=== PATIENT | female | born 1980 | race Caucasian/White ===

== ENCOUNTER 2023-10-18 22:15 | Emergency (ER) | payer SELFPAY ==
--- NOTE | 2023-10-18 23:24 | EDPHYS ---
Physician Documentation [facility] Name: Katie Buenrostro Age: 42 yrs Sex: Female : 1980 Arrival Date: 10/18/2023 Time: 22:15 Bed Waiting Private MD: ED Physician Hilton Etienne HPI: 10/17 22:52 This 42 yrs old Female presents to ER via Unassigned with complaints of sp4 Depression, Anxiety. 23:23 Eloped prior to assessment . sp4 MDM: 23:03 Patient medically screened. sp4 Administered Medications: No medications were administered Disposition: 23:24 Chart complete. sp4 Disposition Summary: 10/18/23 23:23 Eloped Notes: Disposition: before being seen by provider sp4 Problem: new sp4 Symptoms: are unchanged sp4 Reason: unknown sp4 Condition: Undetermined sp4 Diagnosis - Anxiety disorder, unspecified sp4 Followup: sp4 - With: Private Physician - When: As needed - Reason: Signatures: Hilton Etienne MD MD sp4
--- NOTE | 2023-10-18 23:58 | ER ---
Nurse's Notes [facility] Name: Katie Buenrostro Age: 42 yrs Sex: Female : 1980 Arrival Date: 10/18/2023 Time: 22:15 Bed Waiting Private MD: Diagnosis: Anxiety disorder, unspecified Assessment: 10/17 23:09 Reassessment: Called in WR, no answer. tl4 23:45 Reassessment: Called in waiting room, no answer. tl4 23:56 Reassessment: Called in WR, no answer. tl4 ED Course: 22:24 Patient arrived in ED. mr 22:52 Hilton Etienne MD is Attending Physician. sp4 Administered Medications: No medications were administered Outcome: 23:57 Patient left the ED. tl4 Signatures: Kate Arcos, Reg Reg mr Hilton Etienne MD MD sp4 Aaron Vang RN RN tl4
== END 2023-10-18 23:57 | disposition left against medical advice (07) ==
LOC: ER 22:15
DX: Z02.9 Encounter for administrative examinations, unspecified (principal)

== ENCOUNTER 2023-10-20 20:53 | Emergency (ER) | payer SELFPAY ==
[2023-10-20 21:22] LABS: Absolute Basophils 0.2 K/uL (0-0.5); Absolute Eosinophils 0.2 K/uL (0-0.5); Absolute Lymphocytes (CBC) 3.8 K/uL (0.7-4.9); Absolute Monocytes 0.5 K/uL (0.1-1.3); Absolute Neutrophil 3.3 K/uL (1.8-8.0); Basophils % 2.1 % (0-1.3); Eosinophils % 2.2 % (0-4.4); Hematocrit 36.6 % (36.0-45.0); Hemoglobin 11.5 g/dL (12.0-15.0); Lymphocytes % 48.1 % (15.3-44.8); MCH 26.1 pg (27.0-35.0); MCHC 31.5 g/dL (32.0-36.0); MCV 82.8 fL (80-100); MPV 8.2 fL (7.6-11.3); Monocytes % 6.5 % (3.3-12.3); Neutrophils % 41.1 % (41.7-73.7); Nucleated Red Blood Cells % 0.2 % (0-0); Platelets 274 thou/uL (152-406); RBC Red Blood Cell Count 4.42 M/uL (3.86-4.86); Red Cell Distribution Width 18.6 % (12.1-15.2)
[2023-10-20 21:42] LABS: ALT/SGPT 32 U/L (13-56); AST/SGOT 23 U/L (15-37); Alkaline Phosphatase 79 U/L (45-117); Anion Gap 9.8 mEq/L (5.0-15.0); BUN Blood Urea Nitrogen 16 mg/dL (7-18); Bicarbonate 26 mEq/L (21-32); Bilirubin Total 0.3 mg/dL (0.2-1.0); Globulin 2.9 g/dL (2.3-3.5); Glomerular Filtration Rate 89 ml/min (=/>90); Glucose Level 116 mg/dL (74-106); Potassium 3.8 mEq/L (3.5-5.1); Protein, Total 5.9 g/dL (6.4-8.2); Sodium Level 143 mEq/L (136-145)
[2023-10-20 21:45] LABS: Bilirubin Direct < 0.2 mg/dL (0-0.2); Bilirubin Indirect, Calculated 0.1 mg/dL (0.2-0.8)
[2023-10-20] MEDS ORDERED: NA CHLORIDE 0.9% 1,000 ML ONE (22:56)
[2023-10-20] MEDS ORDERED: NICOTINE 21 MG/PAT TD ONE (23:13)
[2023-10-20 23:40] LABS: Barbiturates NEGATIVE (NEGATIVE); Benzodiazepines NEGATIVE (NEGATIVE); Cocaine NEGATIVE (NEGATIVE); METHAMPHETAM POSITIVE (NEGATIVE); Methadone POSITIVE (NEGATIVE); Opiates NEGATIVE (NEGATIVE); Phencyclidine NEGATIVE (NEGATIVE); THC Cannibis NEGATIVE (NEGATIVE)
[2023-10-21] MEDS ORDERED: KETOROLAC 30 MG/ML INJ ONE ×2 (00:24→10:57)
[2023-10-21] MEDS ORDERED: NA CHLORIDE 0.9% 1,000 ML ONE (05:20)
--- NOTE | 2023-10-21 08:08 | ER ---
Nurse's Notes [facility] Name: Katie Buenrostro Age: 42 yrs Sex: Female : 1980 Arrival Date: 10/20/2023 Time: 20:53 Bed 18 Private MD: Diagnosis: Suicidal ideations;Major depressive disorder, recurrent, moderate;Alcohol dependence with intoxication Presentation: 10/19 20:56 Chief complaint: EMS states: patient reported that she want to kill herself by rg5 putting a knife in her throat. She been drinking alcohol for the past 3 days, today she reports drinking 1 bottle of vodka. 20:56 Coronavirus screen: Vaccine status: Patient reports being unvaccinated. Client denies rg5 travel out of the [place] in the last 14 days. Ebola Screen: Patient negative for fever greater than or equal to 101.5 degrees Fahrenheit, and additional compatible Ebola Virus Disease symptoms. Initial Sepsis Screen: Does the patient meet any 2 criteria? No. Patient's initial sepsis screen is negative. Does the patient have a suspected source of infection? No. Patient's initial sepsis screen is negative. Risk Assessment: Do you want to hurt yourself or someone else? Patient reports no desire to harm self or others. Onset of symptoms was October 20, 2023. 20:56 Method Of Arrival: EMS: [place] [id number] 20:56 Acuity: JASON 2 rg5 Triage Assessment: 20:56 General: Appears comfortable, Behavior is calm, cooperative, appropriate for age. rg5 General: [place] PROVIDED BY [place] [employer]. Pain: Complains of pain in right leg and left leg Pain does not radiate. Pain currently is 3 out of 10 on a pain scale. Neuro: Level of Consciousness is awake, alert, obeys commands, Oriented to person, place, time, situation. Neuro: Reports SUICIDAL IDEATIONS. REPORT WANTS TO CUT HER THROAT WITH A KNIFE.. Cardiovascular: Capillary refill. Respiratory: Airway is patent Trachea midline Respiratory effort is even, labored. GI: No signs and/or symptoms were reported involving the gastrointestinal system. Abdomen is round obese. 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 - Infectious Disease History:: Denies. - Social history:: Smoking status: Patient reports the use of cigarette tobacco products, denies chronic smoking, but will smoke occasionally, Patient uses alcohol, on a daily basis. Screenin:56 [facility] ED Fall Risk Assessment (Adult) History of falling in the last 3 months, rg5 including since admission No falls in past 3 months (0 pts) Confusion or Disorientation No (0 pts) Intoxicated or Sedated Yes (3 pts) Impaired Gait No (0 pts) Mobility Assist Device Used No (0 pt) Altered Elimination Yes (1 pt) Score/Fall Risk Level 3 or more points = High Risk Oriented to surroundings, Maintained a safe environment, Educated pt \\T\\ family on fall prevention, incl call for assistance when getting out of bed, Hourly rounding (assess needs \\T\\ fall precautionary measures) done. Abuse screen: Denies threats or abuse. Abuse screen: Denies injuries from another. Nutritional screening: No deficits noted. Tuberculosis screening: No symptoms or risk factors identified. Assessment: 21:34 General: see triage assessment. rg5 22:30 Reassessment: patient sleeping, eyes closed. rg5 22:30 Respiratory: Airway is patent Trachea midline Respiratory effort is even, relaxed, rg5 Respiratory pattern is regular, symmetrical. 23:15 Reassessment: JOVITAWillie CORTES SR. [phone] (). rg5 23:15 Reassessment: refused IV insertion \\T\\ fluids, stated I am not collaborate with you if rg5 won't able talk to my . attempted to call number but no answer. 10/20 01:15 Reassessment: Patient and/or family updated on plan of care and expected duration. Pain rg5 level reassessed. Patient is alert, oriented x 3, equal unlabored respirations, skin warm/dry/pink. 03:20 Reassessment: Patient and/or family updated on plan of care and expected duration. Pain rg5 level reassessed. Patient is alert, oriented x 3, equal unlabored respirations, skin warm/dry/pink. 05:26 Reassessment: Patient and/or family updated on plan of care and expected duration. Pain rg5 level reassessed. Patient is alert, oriented x 3, equal unlabored respirations, skin warm/dry/pink. 06:40 Reassessment: Patient and/or family updated on plan of care and expected duration. Pain ha1 level reassessed. Patient is alert, oriented x 3, equal unlabored respirations, skin warm/dry/pink. 07:00 Reassessment: to bedside for C-SSRS screening, see paper charting for more information, rs5 pt is high risk, sitter at bedside. 07:00 General: Appears in no apparent distress. comfortable, Behavior is calm, cooperative. rs5 Pain: Denies pain. Neuro: Level of Consciousness is awake, alert, obeys commands, Oriented to person, place, time, situation. Cardiovascular: Patient's skin is warm and dry. Rhythm is regular. GI: Abdomen is round non-distended, Abd is soft and non tender X 4 quads. : No signs and/or symptoms were reported regarding the genitourinary system. EENT: No signs and/or symptoms were reported regarding the EENT system. Derm: Skin is intact, Skin is pink, warm \\T\\ dry. Musculoskeletal: Range of motion: intact in all extremities. 08:05 Reassessment: Patient and/or family updated on plan of care and expected duration. Pain rs5 level reassessed. Patient is alert, oriented x 3, equal unlabored respirations, skin warm/dry/pink. 09:07 Reassessment: No changes from previously documented assessment. rs5 10:10 Reassessment: No changes from previously documented assessment. rs5 11:20 Reassessment: Patient and/or family updated on plan of care and expected duration. Pain rs5 level reassessed. Patient is alert, oriented x 3, equal unlabored respirations, skin warm/dry/pink. 12:15 Reassessment: No changes from previously documented assessment. rs5 13:20 Reassessment: Patient and/or family updated on plan of care and expected duration. Pain rs5 level reassessed. Patient is alert, oriented x 3, equal unlabored respirations, skin warm/dry/pink. 14:22 Reassessment: No changes from previously documented assessment. rs5 15:30 Reassessment: Patient and/or family updated on plan of care and expected duration. Pain rs5 level reassessed. Patient is alert, oriented x 3, equal unlabored respirations, skin warm/dry/pink. 16:33 Reassessment: Patient and/or family updated on plan of care and expected duration. Pain rs5 level reassessed. Patient is alert, oriented x 3, equal unlabored respirations, skin warm/dry/pink. 17:40 Reassessment: pt in bed, respirations even and unlabored, side rails up x2, eyes closed.rs5 18:46 Reassessment: No changes from previously documented assessment. rs5 19:00 Reassessment: Patient appears in no apparent distress at this time. Patient and/or cp4 family updated on plan of care and expected duration. Pain level reassessed. Patient is alert, oriented x 3, equal unlabored respirations, skin warm/dry/pink. 19:15 Reassessment: Patient in pajaris and refuses to change into paper scrubs. Charge nurse cp4 notified. 20:00 Reassessment: No changes from previously documented assessment. Patient and/or family cp4 updated on plan of care and expected duration. Pain level reassessed. Patient is alert, oriented x 3, equal unlabored respirations, skin warm/dry/pink. 21:00 Reassessment: No changes from previously documented assessment. Patient and/or family cp4 updated on plan of care and expected duration. Pain level reassessed. Patient is alert, oriented x 3, equal unlabored respirations, skin warm/dry/pink. 22:00 Reassessment: No changes from previously documented assessment. Patient and/or family cp4 updated on plan of care and expected duration. Pain level reassessed. Patient is alert, oriented x 3, equal unlabored respirations, skin warm/dry/pink. 23:00 Reassessment: No changes from previously documented assessment. Patient and/or family cp4 updated on plan of care and expected duration. Pain level reassessed. Patient is alert, oriented x 3, equal unlabored respirations, skin warm/dry/pink. 10/21 00:00 Reassessment: No changes from previously documented assessment. Patient and/or family cp4 updated on plan of care and expected duration. Pain level reassessed. Patient is alert, oriented x 3, equal unlabored respirations, skin warm/dry/pink. 01:00 Reassessment: No changes from previously documented assessment. Patient and/or family cp4 updated on plan of care and expected duration. Pain level reassessed. Patient is alert, oriented x 3, equal unlabored respirations, skin warm/dry/pink. 02:00 Reassessment: No changes from previously documented assessment. Patient and/or family cp4 updated on plan of care and expected duration. Pain level reassessed. Patient is alert, oriented x 3, equal unlabored respirations, skin warm/dry/pink. 03:00 Reassessment: No changes from previously documented assessment. Patient and/or family cp4 updated on plan of care and expected duration. Pain level reassessed. Patient is alert, oriented x 3, equal unlabored respirations, skin warm/dry/pink. 04:00 Reassessment: No changes from previously documented assessment. Patient and/or family cp4 updated on plan of care and expected duration. Pain level reassessed. Patient is alert, oriented x 3, equal unlabored respirations, skin warm/dry/pink. 05:00 Reassessment: No changes from previously documented assessment. Patient and/or family cp4 updated on plan of care and expected duration. Pain level reassessed. Patient is alert, oriented x 3, equal unlabored respirations, skin warm/dry/pink. 06:00 Reassessment: No changes from previously documented assessment. Patient and/or family cp4 updated on plan of care and expected duration. Pain level reassessed. Patient is alert, oriented x 3, equal unlabored respirations, skin warm/dry/pink. 07:00 Reassessment: To bedside for C-SSRS screening, pt is high risk, sitter at bedside. rs5 07:00 General: Appears in no apparent distress. comfortable, Behavior is calm, cooperative. rs5 Neuro: Level of Consciousness is awake, alert, obeys commands, Oriented to person, place, time, situation. Cardiovascular: Patient's skin is warm and dry. Respiratory: Airway is patent Respiratory effort is even, unlabored, Respiratory pattern is regular, symmetrical. 07:00 GI: Abdomen is round non-distended, Abd is soft and non tender X 4 quads. : No signs rs5 and/or symptoms were reported regarding the genitourinary system. EENT: No signs and/or symptoms were reported regarding the EENT system. Derm: Skin is intact, Skin is pink, warm \\T\\ dry. Musculoskeletal: Range of motion: intact in all extremities. 08:01 Reassessment: Patient and/or family updated on plan of care and expected duration. Pain rs5 level reassessed. Patient is alert, oriented x 3, equal unlabored respirations, skin warm/dry/pink. 09:10 Reassessment: No changes from previously documented assessment. rs5 09:48 Reassessment: Patient and/or family updated on plan of care and expected duration. Pain rs5 level reassessed. Patient is alert, oriented x 3, equal unlabored respirations, skin warm/dry/pink. 10:55 Reassessment: to bedside, pt states "I AM HURTING EVERYWHERE, CAN YOU PLEASE GET THE rs5 DOCTOR". 10:55 Pain: Complains of pain in generalized Pain currently is 10 out of 10 on a pain scale. rs5 Quality of pain is described as aching, Is continuous. 10:56 Reassessment: Provider notified pt is experiencing pain. rs5 12:05 Reassessment: Patient and/or family updated on plan of care and expected duration. Pain rs5 level reassessed. Patient is alert, oriented x 3, equal unlabored respirations, skin warm/dry/pink. Patient states feeling better. Patient states symptoms have improved. 13:10 Reassessment: No changes from previously documented assessment. rs5 13:40 Reassessment: Patient and/or family updated on plan of care and expected duration. Pain rs5 level reassessed. Patient is alert, oriented x 3, equal unlabored respirations, skin warm/dry/pink. 13:51 Reassessment: mental health deputy at bedside for transport. rs5 Psych: 10/19 20:56 [place] Suicide Severity Screening: In the past month, have you wished you were rg5 or wished you could go to sleep and not wake up? Patient responds "yes." "In the past month, have you actually had any thoughts of killing yourself?" Patient responds "yes." "In your lifetime, have you ever done anything, started to do anything, or prepared to do anything to end your life?" Patient responds "yes." Patient reports suicidal intent occurred greater than 3 months prior. Subjective: Having thoughts of suicide. Plan for suicide is WANT TO CUT HER THROAT WITH A KNIFE. Objective: Patient is cooperative, Speech is normal, Affect is appropriate. 20:56 Interventions: Removed personal items and placed in bag. Patient placed in hospital rg5 gown. Searched person for dangerous items. Urine collected and sent for urine drug test. Belonging list filled out. Safety Checks: Personal items have been removed. Door is open. Patient uses 1 bottle of liquor. Commitment: Patient will be an involuntary commitment. Vital Signs: 20:56 BP 120 / 79; Pulse 60; Resp 18; Temp 98.1; Pulse Ox 95% on R/A; Weight 116.57 kg; rg5 Height 5 ft. 6 in. ; Pain 0/10; 22:03 BP 129 / 77; Pulse 87; Resp 18; Temp 98; rg5 23:35 BP 126 / 65; Pulse 88; Resp 17; Temp 98; Pulse Ox 96% on R/A; Pain 0/10; rg5 07/05 07:10 BP 155 / 78; Pulse 80; Resp 17; Pulse Ox 99% on R/A; rs5 15:05 BP 145 / 78; Pulse 77; Resp 17; Pulse Ox 99% on R/A; rs5 19:00 BP 167 / 88; Pulse 79; Resp 16; Temp 96.3; Pulse Ox 97% on R/A; af3 07/06 07:10 BP 164 / 81; Pulse 74; Resp 17; Temp 97.7(O); Pulse Ox 99% on R/A; rs5 13:42 BP 158 / 84; Pulse 77; Resp 17; Pulse Ox 99% on R/A; rs5 07/04 20:56 Body Mass Index 41.48 (116.57 kg, 167.64 cm) rg5 07 20:56 Pain Scale: Adult rg5 23:35 Pain Scale: Adult rg5 Deni Coma Score: 10/19 22:03 Eye Response: spontaneous(4). Motor Response: obeys commands(6). Verbal Response: rg5 oriented(5). Total: 15. ED Course: 20:56 Patient arrived in ED. rg5 20:56 Charles Duarte MD is Attending Physician. bo1 20:56 No provider procedures requiring assistance completed. Inserted saline lock: 22 gauge rg5 in left forearm, using aseptic technique. 20:56 Arm band placed on right wrist. Patient placed. rg5 20:56 Client placed on continuous cardiac and pulse oximetry monitoring. NIBP monitoring ha1 applied. groundwater monitoring technician on. 21:10 EKG completed in triage. Results shown to MD. ha1 21:16 Acetaminophen Sent. vk 21:16 Basic Metabolic Panel Sent. vk 21:16 CBC with Diff Sent. vk 21:16 ETOH Level Sent. vk 21:16 Hepatic Function Sent. vk 21:16 Salicylate Sent. vk 21:16 Urine Drug Screen Sent. vk 21:18 Barney Goff, RN is Primary Nurse. rg5 21:25 Triage completed. rg5 22:03 Patient has correct armband on for positive identification. Placed in gown. Bed in low rg5 position. Call light in reach. Side rails up X2. 22:06 Warm blanket given. Pillow given. vk 22:42 Initial lab(s) drawn, by ED staff, sent to lab. vk 10/20 01:09 Safety checks: Items removed: yes. Door open/sign placed on door: yes. Sitter present: vk Yes. Diet: Patient given water. 01:10 Diet: Patient given snack. vk 05:40 [facility] called to initiate PT evaluation, will be informed of ETA at later time. ty 06:15 faxed pt clinicals to [facility] from the [facility] at [phone]. eb 07:20 Primary Nurse role handed off by Barney Goff RN rg5 07:21 faxed patient clinicals to [facility] and [facility]. eb 08:21 Attending Physician role handed off by Charles Duarte MD rn 08:21 Raad Schrader MD is Attending Physician. rn 10:18 Baljit Barbosa, SHERRI is Primary Nurse. rs5 15:25 called [facility] to check on the status of the [facility] bed/ patient is eb currently on a wait list with them/. 17:05 IV discontinued, intact, bleeding controlled, No redness/swelling at site. Pressure rs5 dressing applied. 18:48 Noise minimized. Visitors limited. Lights dimmed. km 19:10 Notified primary nurse of pt refused to change into paper scrubs. pt stated "call the 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 I'm not changing." notified charge nurse to situation as well. 10/21 11:00 Patient not agreeing to change into paper scrubs due to a rash she currently has on bc6 skin (under belly) . 11:50 faxed patient chart to [facility] again/ per [facility] they should have a bed for eb her. Administered Medications: 10/19 23:14 Drug: Nicoderm CQ Transdermal Patch 21 mg/24 hr 1 patches Transdermal once {Note: LEFT rg5 DELTOID.} Route: Transdermal; Site: affected area; 10/20 00:00 Follow up: Response: No adverse reaction rg5 00:29 Drug: Ketorolac IM 60 mg IM once Route: IM; Site: right deltoid; ha1 01:00 Follow up: Response: No adverse reaction; Pain is decreased rg5 00:30 Drug: NS 0.9% IV 1000 ml IV at 125 ml/hr continuous Route: IV; Rate: 125 ml/hr; Site: ha1 left forearm; 02:47 Follow up: Response: No adverse reaction; IV Status: Completed infusion; IV Intake: rg5 1000ml 05:26 Drug: NS 0.9% IV 1000 ml IV at 1000 ml once Route: IV; Rate: 1000 ml; Site: left rg5 forearm; 06:01 Follow up: Response: No adverse reaction; IV Status: Completed infusion; IV Intake: rs5 500ml 11:00 Drug: Ketorolac IM 30 mg IM once Route: IM; Site: left deltoid; rs5 11:15 Follow up: Response: No adverse reaction; Pain is decreased rs5 15:00 Drug: Gabapentin PO 300 mg PO once Route: PO; rs5 23:21 Follow up: Response: No adverse reaction cp4 15:00 Drug: Acetaminophen PO 650 mg PO once Route: PO; rs5 23:21 Follow up: Response: No adverse reaction cp4 10/21 01:41 Drug: morphine IM 4 mg IM once Route: IM; Site: right deltoid; cp4 04:40 Follow up: Response: No adverse reaction cp4 11:05 Drug: HYDROcodone-acetaminophen PO 5 mg-325 mg 1 tabs PO once Route: PO; rs5 12:10 Follow up: Response: No adverse reaction; Pain is decreased rs5 Medication: 10/20 02:09 VIS not applicable for this client. rg5 Intake: 02:47 IV: 1000ml; Total: 1000ml. rg5 06:01 IV: 500ml; Total: 1500ml. rs5 Outcome: 08:07 ER care complete, transfer ordered by MD. espinal 10/21 13:53 Transferred by mental health deputy. Transfer form completed. rs5 Condition: stable Instructed on the need for transfer, Demonstrated understanding of instructions, 13:54 Patient left the ED. rs5 Signatures: Raad Schrader MD MD rn Botello, Elizabeth eb Ayala, Heidy RN RN ha1 Baljit Barbosa RN RN rs5 Jesusita Castañeda Christina cp4 Forrester, Kelsey Maroul [facility] Catherine Capps Tylor ty Oei, Benjamin, MD MD bo1 Barney Goff RN RN rg5 Judith Padilla3 Corrections: (The following items were deleted from the chart) 10/19 21:28 21:26 PMHx: ptsd; rg5 rg5 10/20 02:47 02:47 Response: No adverse reaction rg5 rg5 10/21 09:49 07 07:10 BP 122 / 68; Pulse 80bpm; Resp 17bpm; Pulse Ox 99% RA; rs5 rs5 10/21 09:49 0705 15:05 BP 130 / 78; Pulse 77bpm; Resp 17bpm; Pulse Ox 99% RA; rs5 rs5 10/21 11:12 07:10 BP 164 / 81; Pulse 74bpm; Resp 17bpm; Pulse Ox 99% RA; rs5 rs5 13:55 13:29 BP 158 / 84; Pulse 77bpm; Resp 17bpm; Pulse Ox 99% RA; rs5 rs5
--- NOTE | 2023-10-21 08:08 | EDPHYS ---
Physician Documentation [facility] Name: Katie Buenrostro Age: 42 yrs Sex: Female : 1980 Arrival Date: 10/20/2023 Time: 20:53 Bed 18 Private MD: ED Physician Raad Schrader HPI: 10/20 08:08 This 42 yrs old Female presents to ER via EMS with complaints of Suicidal Ideation. bo1 10/19 20:57 The patient presents to the emergency department with suicide ideation, but the patient bo1 has no formulated plan, Pt is on methadone.. Onset: The symptoms/episode began/occurred gradually, 3 week(s) ago. 21:01 Past psychiatric history: Depression and anxiety. PTSD per the pt.. VERONICA here with an bo1 OLIVIA being issued.. 23:52 The patient has experienced similar episodes in the past. bo1 TREATMENT SPECIALIST: 10/20 02:09 LMP N/A - , Not rg5 Historical: - Allergies: 10/19 20:58 PENICILLINS; bo1 - PMHx: 21:26 epilexia; Depressive disorder; Anxiety; PTSD; rg5 - Immunization history:: Adult Immunizations. - Infectious Disease History:: Denies. - Social history:: Smoking status: Patient reports the use of cigarette tobacco products, denies chronic smoking, but will smoke occasionally, Patient uses alcohol, on a daily basis. ROS: 20:59 Cardiovascular: Negative for chest pain, bo1 20:59 Respiratory: Negative for shortness of breath, 20:59 Abdomen/GI: Negative for abdominal pain, 23:53 Psych: Positive for suicidal ideation, Negative for homicidal ideation, bo1 10/20 08:08 Constitutional: Negative for fever, chills, and weight loss, bo1 Exam: 10/19 20:59 Psych: Awake, alert, with orientation to person, place and time. Behavior, mood, and bo1 affect are evident for a depressed person. 21:02 Skin: injury, is not appreciated, bo1 21:02 Chest/axilla: Inspection: normal, bo1 21:02 Cardiovascular: Rate: normal, Rhythm: regular, Pulses: Pulses are 2+ in right brachial artery, left brachial artery, left carotid pulse and right carotid pulse. 21:02 Respiratory: Breath sounds: are clear throughout, 21:02 Abdomen/GI: Inspection: abdomen appears normal, Palpation: abdomen is soft and non-tender, 21:30 ECG was reviewed by the Attending Physician. bo1 23:50 Musculoskeletal/extremity: Extremities: all appear grossly normal, with no appreciated bo1 pain with palpation, 23:50 Neuro: Exam negative for acute changes, 23:50 Psych: Behavior/mood is cooperative, suicidal, depressed, Affect is Labile. 23:51 Constitutional: The patient appears alert, awake, bo1 Vital Signs: 20:56 BP 120 / 79; Pulse 60; Resp 18; Temp 98.1; Pulse Ox 95% on R/A; Weight 116.57 kg; rg5 Height 5 ft. 6 in. ; Pain 0/10; 22:03 BP 129 / 77; Pulse 87; Resp 18; Temp 98; rg5 23:35 BP 126 / 65; Pulse 88; Resp 17; Temp 98; Pulse Ox 96% on R/A; Pain 0/10; rg5 07 07:10 BP 155 / 78; Pulse 80; Resp 17; Pulse Ox 99% on R/A; rs5 15:05 BP 145 / 78; Pulse 77; Resp 17; Pulse Ox 99% on R/A; rs5 19:00 BP 167 / 88; Pulse 79; Resp 16; Temp 96.3; Pulse Ox 97% on R/A; af3 07/06 07:10 BP 164 / 81; Pulse 74; Resp 17; Temp 97.7(O); Pulse Ox 99% on R/A; rs5 13:42 BP 158 / 84; Pulse 77; Resp 17; Pulse Ox 99% on R/A; rs5 07/04 20:56 Body Mass Index 41.48 (116.57 kg, 167.64 cm) rg5 10/19 20:56 Pain Scale: Adult rg5 23:35 Pain Scale: Adult rg5 Deni Coma Score: 10/19 22:03 Eye Response: spontaneous(4). Motor Response: obeys commands(6). Verbal Response: rg5 oriented(5). Total: 15. MDM: 20:56 Patient medically screened. bo1 23:49 Data reviewed: lab test result(s), CBC, drug level(s), electrolytes, urinalysis, urine bo1 drug screen, ETOH: Elevated. 10/20 07:17 ED course: [facility] mental health consult - post evaluation recommendation for in-pt bo1 treatment.. 07:19 Management of patient was discussed with the following: Behavioral Health Provider: kylie [facility] - 0719 hrs 10/20. 07 07:17 ED course: Pt resting comfortably this morning, still pending transfer to [facility] facility. . 10/19 20:57 Order name: Acetaminophen; Complete Time: 22:48 bo1 10/19 20:57 Order name: Basic Metabolic Panel; Complete Time: 22:48 bo1 10/19 20:57 Order name: CBC with Diff; Complete Time: 22:48 bo1 10/19 20:57 Order name: ETOH Level; Complete Time: 22:48 bo1 10/19 20:57 Order name: Hepatic Function; Complete Time: 22:48 bo1 10/19 20:57 Order name: Salicylate; Complete Time: 22:48 bo1 10/19 20:57 Order name: Urine Drug Screen; Complete Time: 23:48 bo1 10/20 03:24 Order name: ETOH Level; Complete Time: 05:13 bo10/20 06:54 Order name: ETOH Level; Complete Time: 07:57 bo1 10/19 20:57 Order name: EKG; Complete Time: 20:57 bo1 10/19 20:57 Order name: EKG - Nurse/Tech; Complete Time: 21:18 bo1 10/19 20:57 Order name: IV Saline Lock; Complete Time: 21:15 bo1 10/19 20:57 Order name: Labs collected and sent; Complete Time: 21:15 bo1 10/19 20:57 Order name: Suicide Screening ([place]); Complete Time: 21:18 bo1 EC/04 21:30 Rate is 95 beats/min. Rhythm is regular. QRS [place] is Normal. [place] interval is normal. QRS bo1 interval is normal. QT interval is normal. Q waves are Old in lead V2. T waves are Normal. No ST changes noted. Clinical impression: Septal PR - age indeterminate. Interpreted by me. Reviewed by me. Administered Medications: 23:14 Drug: Nicoderm CQ Transdermal Patch 21 mg/24 hr 1 patches Transdermal once {Note: LEFT rg5 DELTOID.} Route: Transdermal; Site: affected area; 10/20 00:00 Follow up: Response: No adverse reaction rg5 00:29 Drug: Ketorolac IM 60 mg IM once Route: IM; Site: right deltoid; ha1 01:00 Follow up: Response: No adverse reaction; Pain is decreased rg5 00:30 Drug: NS 0.9% IV 1000 ml IV at 125 ml/hr continuous Route: IV; Rate: 125 ml/hr; Site: ha1 left forearm; 02:47 Follow up: Response: No adverse reaction; IV Status: Completed infusion; IV Intake: rg5 1000ml 05:26 Drug: NS 0.9% IV 1000 ml IV at 1000 ml once Route: IV; Rate: 1000 ml; Site: left rg5 forearm; 06:01 Follow up: Response: No adverse reaction; IV Status: Completed infusion; IV Intake: rs5 500ml 11:00 Drug: Ketorolac IM 30 mg IM once Route: IM; Site: left deltoid; rs5 11:15 Follow up: Response: No adverse reaction; Pain is decreased rs5 15:00 Drug: Gabapentin PO 300 mg PO once Route: PO; rs5 23:21 Follow up: Response: No adverse reaction cp4 15:00 Drug: Acetaminophen PO 650 mg PO once Route: PO; rs5 23:21 Follow up: Response: No adverse reaction cp4 07/06 01:41 Drug: morphine IM 4 mg IM once Route: IM; Site: right deltoid; cp4 04:40 Follow up: Response: No adverse reaction cp4 11:05 Drug: HYDROcodone-acetaminophen PO 5 mg-325 mg 1 tabs PO once Route: PO; rs5 12:10 Follow up: Response: No adverse reaction; Pain is decreased rs5 Disposition Summary: 10/21/23 08:07 Transfer Ordered Notes: Transfer Location: Psych Facility bo1 Reason: Higher level of care bo1 Condition: Stable bo1 Problem: chronic bo1 Symptoms: are unchanged bo1 Accepting Physician: Mery In-Pt(10/22/23 13:54) rs5 Diagnosis - Suicidal ideations bo1 - Major depressive disorder, recurrent, moderate bo1 - Alcohol dependence with intoxication bo1 Discharge Instructions: - Discharge Summary Sheet ty Forms: - SBAR form ty - Medication Reconciliation Form bo1 Signatures: Dispatcher [employer] Raad Gardner MD MD rn Page, Corey, PA PA cp Ayala, Heidy, RN RN [facility] Baljit Barbosa RN RN rs5 Mellisa Negrete cp4 Charles Duarte MD MD bo1 Barney Goff RN RN rg5 Corrections: (The following items were deleted from the chart) 10/19 21:28 21:26 PMHx: ptsd; rg5 rg5 10/20 08:09 08:07 Psyc In-Pt bo1 bo1 10/21 13:54 07 08:09 Psyc In-Pt [facility] rs5
[2023-10-21] MEDS ORDERED: ACETAMINOPHEN 325 MG TABLET ONE (08:57)
[2023-10-21] MEDS ORDERED: GABAPENTIN 300 MG CAP ONE (15:26)
[2023-10-22] MEDS ORDERED: MORPHINE 4 MG/ML SYR ONE (01:37)
[2023-10-22] MEDS ORDERED: HYDROCODONE/APAP 5/325 MG TAB ONE (11:09)
[2023-10-22 14:13] VITALS: BP 158/84; TEMP 97.7; O2SAT 99
--- NOTE | 2023-10-26 12:20 | EKG ---
Test Date: 2023-10-20 Test Time: 21:23:34 Radioisotope Technologist: ANGELI MEASUREMENT RESULTS: Intervals: Rate: 95 SD: 140 QRSD: 74 QT: 364 QTc: 457 [place]: P: 75 SD: 140 QRS: 48 T: 61 INTERPRETIVE STATEMENTS: Normal sinus rhythm Septal infarct, age undetermined Abnormal ECG No previous ECG available for comparison Electronically Signed On 10-26-23 12:14:37 CDT by Harlan Amin
== END 2023-10-22 13:54 ==
LOC: ER 20:53
DX: R45.851 Suicidal ideations (principal); F33.1 Major depressive disorder, recurrent, moderate; F10.229 Alcohol dependence with intoxication, unspecified
CPT/HCPCS: 36415; 80048; 80076; 80143; 80179; 80307; 82077; 85025; 93005; 96360; 96361; 96372; 99285; J7030

== ENCOUNTER 2023-11-06 22:38 | Emergency (ER) | payer SELFPAY ==
[2023-11-06] MEDS ORDERED: ONDANSETRON 4 MG/2 ML VIAL ONE (23:18)
[2023-11-06] MEDS ORDERED: NA CHLORIDE 0.9% 1,000 ML ONE (23:19)
[2023-11-06] MEDS ORDERED: LORazepam 2 MG/ML VIAL ONE (23:19)
[2023-11-06] MEDS ORDERED: FAMOTIDINE 20 MG/2 ML VIAL IV ONE (23:19)
[2023-11-06] MEDS ORDERED: cloNIDine HCL 0.1 MG TAB ONE (23:19)
[2023-11-06] MEDS ORDERED: FAMOTIDINE 20 MG TAB ONE (23:39)
[2023-11-07 00:11] LABS: Absolute Basophils 0.1 K/uL (0-0.5); Absolute Lymphocytes (CBC) 2.3 K/uL (0.7-4.9); Absolute Monocytes 0.3 K/uL (0.1-1.3); Absolute Neutrophil 4.6 K/uL (1.8-8.0); Basophils % 1.1 % (0-1.3); Eosinophils % 0.2 % (0-4.4); Hematocrit 40.2 % (36.0-45.0); Hemoglobin 12.7 g/dL (12.0-15.0); Lymphocytes % 31.6 % (15.3-44.8); MCH 26.2 pg (27.0-35.0); MCHC 31.5 g/dL (32.0-36.0); MCV 83.1 fL (80-100); MPV 8.2 fL (7.6-11.3); Monocytes % 3.8 % (3.3-12.3); Neutrophils % 63.3 % (41.7-73.7); Platelets 248 thou/uL (152-406); RBC Red Blood Cell Count 4.84 M/uL (3.86-4.86); Red Cell Distribution Width 20.2 % (12.1-15.2)
[2023-11-07 00:14] LABS: PT Prothrombin Time 10.9 SECONDS (9.4-12.5); PTT, Activated Partial Thromb 25.8 SECONDS (24.3-36.9); Protime INR 0.97
[2023-11-07 00:19] LABS: ALT/SGPT 29 U/L (13-56); AST/SGOT 28 U/L (15-37); Albumin 3.3 g/dL (3.4-5.0); Albumin/Globulin Ratio 1.1 (1.1-1.8); Alkaline Phosphatase 91 U/L (45-117); Anion Gap 17.3 mEq/L (5.0-15.0); BUN Blood Urea Nitrogen 8 mg/dL (7-18); Bicarbonate 21 mEq/L (21-32); Bilirubin Direct < 0.2 mg/dL (0-0.2); Bilirubin Indirect, Calculated 0.1 mg/dL (0.2-0.8); Bilirubin Total 0.3 mg/dL (0.2-1.0); Globulin 2.9 g/dL (2.3-3.5); Glomerular Filtration Rate 99 ml/min (=/>90); Glucose Level 239 mg/dL (74-106); Potassium 3.3 mEq/L (3.5-5.1); Protein, Total 6.2 g/dL (6.4-8.2); Sodium Level 140 mEq/L (136-145)
[2023-11-07] MEDS ORDERED: ACETAMINOPHEN 500 MG TAB ONE (00:24)
[2023-11-07 00:55] LABS: Anisocytosis 1+; Blood Morphology Comment NOTED (NOT SEEN); Platelet Estimate ADEQ; White Blood Cell Scan OK (OK)
[2023-11-07 01:26] LABS: Specific Gravity 1.008 (1.005-1.030)
[2023-11-07 01:34] LABS: Barbiturates NEGATIVE (NEGATIVE); Benzodiazepines POSITIVE (NEGATIVE); Cocaine NEGATIVE (NEGATIVE); METHAMPHETAM NEGATIVE (NEGATIVE); Methadone NEGATIVE (NEGATIVE); Opiates NEGATIVE (NEGATIVE); Phencyclidine NEGATIVE (NEGATIVE); THC Cannibis NEGATIVE (NEGATIVE)
[2023-11-07 01:36] LABS: Specific Gravity 1.008 (1.005-1.030); Sqamous Epithelial <5 /HPF (None Seen); Urine Bacteria <20 /HPF (<20); Urine Bilirubin NEGATIVE (Negative); Urine Blood Negative (Negative); Urine Clarity Extremely Turbid (Clear); Urine Color Light-Yellow (Yellow); Urine Culture Reflex Order NOT NEEDED; Urine Glucose NEGATIVE (Negative); Urine Ketones NEGATIVE (Negative); Urine Microscopic Reflex YN ORDER UMIC; Urine Mucus Slight /HPF (None Seen); Urine Nitrite NEGATIVE (Negative); Urine Protein NEGATIVE (Negative); Urine RBC None Seen /HPF (None Seen); Urine Urobilinogen Normal (Normal); Urine WBC <5 /HPF (<5); Urine Yeast (Budding) Trace /HPF (None Seen)
[2023-11-07] MEDS ORDERED: NICOTINE 21 MG/PAT TD ONE (02:23)
[2023-11-07] MEDS ORDERED: LORAZEPAM 1 MG TABLET ONE (03:16)
[2023-11-07] MEDS ORDERED: LOPERAMIDE HCL 2 MG CAPSULE ONE (03:48)
--- NOTE | 2023-11-07 07:01 | EDPHYS ---
Physician Documentation [facility] Name: Katie Buenrostro Age: 42 yrs Sex: Female : 1980 Arrival Date: 11/06/2023 Time: 22:38 Bed 17 Private MD: ED Physician Lucian Das HPI: 11/05 23:15 This 42 yrs old Female presents to ER via Wheelchair with complaints of Drug Abuse, rt DRUG WITHDRAWL. 23:15 Patient presents to the ED with reported withdrawal symptoms. Patient has not been on rt methadone for about 90 days. Reports pain, nausea, restless leg. She states that she has been drinking large amount of liquor, states that she has not had anything to drink in 6 hours. The patient relates that her family stated that she was suicidal but she denies suicidality to me. Denies other acute complaints at this time, symptoms are moderate in severity, no other aggravating or alleviating factors.. Historical: - Allergies: 23:03 PENICILLINS; jb4 - Home Meds: 23:35 gabapentin 800 mg oral tablet 3 times per day [Active]; trazodone 100 mg Oral tablet jb4 1-2 tabs at bed time [Active]; duloxetine 30 mg oral capsule,delayed release (e.c.) 1 cap daily [Active]; - PMHx: 23:03 depressive disorder; epilexia; Anxiety; PTSD; jb4 - Immunization history:: Adult Immunizations up to date. - Infectious Disease History:: Denies. - Social history:: Smoking status: unknown Patient uses alcohol, patient/guardian reports recent binge of alcohol consumption. - Family history:: not pertinent. ROS: 23:15 Cardiovascular: Negative for chest pain, palpitations, and edema, Respiratory: Negative rt for shortness of breath, cough, wheezing, and pleuritic chest pain, MS/Extremity: Negative for injury and deformity, Skin: Negative for injury, rash, and discoloration, 23:15 Constitutional: Positive for body aches, chills, 23:15 Abdomen/GI: Positive for nausea, Exam: 23:15 Head/Face: Normocephalic, atraumatic. Chest/axilla: Normal chest wall appearance and rt motion. Nontender with no deformity. No lesions are appreciated. Cardiovascular: Regular rate and rhythm with a normal S1 and S2. No gallops, murmurs, or rubs. Normal PMI, no JVD. No pulse deficits. Respiratory: Lungs have equal breath sounds bilaterally, clear to auscultation and percussion. No rales, rhonchi or wheezes noted. No increased work of breathing, no retractions or nasal flaring. Abdomen/GI: Soft, non-tender, with normal bowel sounds. No distension or tympany. No guarding or rebound. No evidence of tenderness throughout. Skin: Warm, dry with normal turgor. Normal color with no rashes, no lesions, and no evidence of cellulitis. MS/ Extremity: Pulses equal, no cyanosis. Neurovascular intact. Full, normal range of motion. 23:15 Constitutional: The patient appears smells of alcohol, 23:25 ECG was reviewed by the Attending Physician. rt Vital Signs: 22:50 BP 154 / 105; Pulse 125; Resp 20; Temp 98.4; Pulse Ox 96% on R/A; Weight 155.13 kg; oe Height 5 ft. 6 in. ; 23:30 BP 143 / 72; Pulse 117; Resp 20; Pulse Ox 97% on R/A; pc2 / 00:30 BP 121 / 53; Pulse 98; Resp 18 S; Pulse Ox 95% on R/A; jw7 01:30 BP 125 / 58; Pulse 95; Resp 16 S; Pulse Ox 97% on R/A; jw7 02:30 BP 130 / 60; Pulse 94; Resp 16 S; Pulse Ox 97% on R/A; jw7 09:23 BP 196 / 106; Pulse 121; Resp 20; Temp 98; Pulse Ox 98% on R/A; Pain 10/10; em1 10:35 BP 190 / 105; Pulse 110; Resp 16; Pulse Ox 99% on R/A; db 12:30 BP 183 / 105; Pulse 96; Resp 18; Pulse Ox 97% on R/A; db 13:30 BP 170 / 79; Pulse 97; Resp 18; Pulse Ox 96% on R/A; db 07/23 10:55 BP 154 / 93; Pulse 118; Resp 17; Temp 98; Pulse Ox 99% on R/A; bc6 11/05 22:50 Body Mass Index 55.20 (155.13 kg, 167.64 cm) oe 09:23 Pain Scale: Adult em1 MDM: 11/05 22:54 Patient medically screened. rt 11/06 06:13 Differential Diagnosis SI, intoxication, drug abuse. Data reviewed: vital signs, nurses rt notes, lab test result(s). Management of patient was discussed with the following: Discussed with mental health deputy who wrote an emergency group home order. I considered the following discharge prescriptions or medication management in the emergency department Medications were administered in the Emergency Department. See MAR. Care significantly affected by the following chronic conditions: Epilepsy. Care significantly affected by the following Social Determinants of Health: Misuse of alcohol and/or drugs. 11/07 07:07 ED course: Patient re-evaluated. Calm, cooperative, laying in bed. Patient requesting ms3 valium for shaking. Patient without signs of withdrawal at this time. Will order 10 mg PO Valium. 10:28 ED course: Patient accepted to [facility]. ms3 11/05 23:05 Order name: Acetaminophen; Complete Time: 00:23 rt 11/05 23:05 Order name: Basic Metabolic Panel; Complete Time: 00:23 rt 11/05 23:05 Order name: CBC with Diff; Complete Time: 01:37 rt 11/05 23:05 Order name: ETOH Level; Complete Time: 00:23 rt 11/05 23:05 Order name: Hepatic Function; Complete Time: 00:23 rt 11/05 23:05 Order name: PT-INR; Complete Time: 00:23 rt 11/05 23:05 Order name: Test, Urine; Complete Time: 01:37 rt 11/05 23:05 Order name: Ptt, Activated; Complete Time: 00:23 rt 11/05 23:05 Order name: Salicylate; Complete Time: 00:23 rt 11/05 23:05 Order name: Urinalysis w/ reflexes; Complete Time: 01:37 rt 11/05 23:05 Order name: Urine Drug Screen; Complete Time: 01:37 rt 11/06 00:14 Order name: CBC Smear Scan; Complete Time: 01:37 EDMS 11/06 06:57 Order name: ETOH Level; Complete Time: 09:22 rt 11/05 23:05 Order name: EKG; Complete Time: 23:06 rt 11/05 23:05 Order name: EKG - Nurse/Tech; Complete Time: 23:14 rt 11/05 23:05 Order name: IV Saline Lock; Complete Time: 23:49 rt 11/05 23:05 Order name: Labs collected and sent; Complete Time: 23:49 rt 11/05 23:05 Order name: Suicide Screening ([place]); Complete Time: 00:41 rt EC/21 23:25 Rate is 121 beats/min. Rhythm is regular, Sinus tachycardia with No ectopy. QRS [place] is rt Normal. [place] interval is normal. QRS interval is normal. QT interval is normal. No Q waves. Administered Medications: 23:37 Drug: cloNIDine PO 0.2 mg PO once Route: PO; jw7 11/06 03:13 Follow up: Response: No adverse reaction; Marked relief of symptoms 7 11/05 23:48 Drug: Famotidine PO 20 mg PO once Route: PO; jw7 11/06 03:13 Follow up: Response: No adverse reaction; Marked relief of symptoms jw7 11/05 23:49 Drug: NS 0.9% IV 1000 ml IV at 1 bolus Per protocol; 1000 mL bolus Route: IV; Rate: 1 jw7 bolus; Site: right antecubital; 11/06 03:15 Follow up: Response: No adverse reaction; IV Status: Completed infusion; IV Intake: jw7 1000ml 11/05 23:49 Drug: Ativan IVP 1 mg IVP once Route: IVP; Site: right antecubital; jw7 11/06 03:13 Follow up: Response: No adverse reaction; Marked relief of symptoms 7 11/05 23:49 Drug: Ondansetron IVP 4 mg IVP once; over 2 minutes Route: IVP; Site: right antecubital;jw7 11/06 03:13 Follow up: Response: No adverse reaction; Marked relief of symptoms 7 00:41 Drug: Acetaminophen PO 1000 mg PO once Route: PO; jw7 03:12 Follow up: Response: No adverse reaction; Marked relief of symptoms; Pain is decreased jw7 03:21 Drug: LORazepam PO 1 mg PO once Route: PO; jw7 05:06 Follow up: Response: No adverse reaction; No change in condition jw7 09:22 CANCELLED (Duplicate Order): ativan2 mg IVP once rn 09:48 Drug: LORazepam IM 1 mg IM once Route: IM; Site: right deltoid; db 11:01 Follow up: Response: No adverse reaction db 09:50 Not Given (Duplicate Order): ativan1 mg IVP once db 09:54 Drug: Ondansetron PO 4 mg PO once Route: PO; db 11:01 Follow up: Response: No adverse reaction db 10:58 Drug: Diazepam IVP 5 mg IVP once Route: IVP; Site: right forearm; db 15:26 Follow up: Response: No adverse reaction db 18:57 Drug: Ondansetron IVP 4 mg IVP once; over 2 minutes Route: IVP; Site: right forearm; db 21:14 Follow up: Response: No adverse reaction cp4 21:46 Drug: Promethazine IM 50 mg IM once Route: IM; Site: left ventrogluteal; cp4 22:54 Follow up: Response: No adverse reaction cp4 11/07 01:39 Drug: traZODONE PO 100 mg PO once Route: PO; cp4 02:26 Follow up: Response: No adverse reaction cp4 07:20 Drug: Diazepam PO 10 mg PO once Route: PO; db 11:00 Follow up: Response: No adverse reaction db Disposition Summary: 11/07/23 07:00 Transfer Ordered Notes: Transfer Location: Psych Facility rt Reason: Higher level of care rt Condition: Stable rt Problem: new rt Symptoms: are unchanged rt Accepting Physician: (11/08/23 11:10) db Diagnosis - Suicidal ideations rt - Alcohol abuse rt Forms: - Medication Reconciliation Form rt - SBAR form rt Signatures: Dispatcher [employer] EDRaad Branch MD MD rn Bryson, James, RN RN jb4 Lucian Das DO DO ms3 Manisha Tomas RN RN jw7 Anna Garces RN RN db Rene Colón MD MD rt Hilton Etienne MD MD sp4 Avtar Arechiga MD MD ec2 Potter, Christina cp4 Corrections: (The following items were deleted from the chart) 11/05 23:06 23:06 ACETAMINOPHEN+C.LAB.BRZ ordered. EDMS EDMS 23:06 23:06 BASIC METABOLIC PANEL+C.LAB.BRZ ordered. EDMS EDMS 23:06 23:06 CBC+H.LAB.BRZ ordered. EDMS EDMS 23:06 23:06 ETHANOL+C.LAB.BRZ ordered. EDMS EDMS : 23:06 HEPATIC FUNCTION+C.LAB.BRZ ordered. EDMS EDMS : 23:06 PROTIME (+INR)+COAG.LAB.BRZ ordered. EDMS EDMS 23: 23:06 Test, Urine+UC.LAB.BRZ ordered. EDMS EDMS 23: 23:06 PTT, ACTIVATED+COAG.LAB.BRZ ordered. EDMS EDMS : 23:06 SALICYLATE+C.LAB.BRZ ordered. EDMS EDMS 23: 23:06 Urinalysis+U.LAB.BRZ ordered. EDMS EDMS 23: 23:06 URINE DRUG SCREEN+UC.LAB.BRZ ordered. EDMS EDMS 11/06 09:22 09:21 Ativan IVP 2 mg IVP once ordered. oliverio duron 11/07 11:10 11/06 07:00 rt db
--- NOTE | 2023-11-07 07:01 | ER ---
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 on the need for transfer, 11:10 Patient left the ED. 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 I have jb4 been drinking copious amounts of liquor to help me detox. I do not know when I stopped or what time I started. My son is saying I was trying to hurt myself. I was not. I have no desire to harm myself. jb4 11/06 03:28 00:00 General: pt c/o a headache, provider notified. . jw7 jw7 11/07 08:35 07:05 General: Appears in no apparent distress. comfortable, Behavior is calm, db cooperative, appropriate for age, db
[2023-11-07] MEDS ORDERED: LORazepam 2 MG/ML VIAL ONE (09:42)
[2023-11-07] MEDS ORDERED: ONDANSETRON 4 MG (ODT) TAB ONE (09:52)
[2023-11-07] MEDS ORDERED: DIAZEPAM 10 MG/2 ML INJ SYRINGE ONE (10:55)
--- NOTE | 2023-11-07 16:30 | EKG ---
Test Date: 2023-11-06 Test Time: 23:16:07 Issue Clerk: PC MEASUREMENT RESULTS: Intervals: Rate: 121 [place]: 138 QRSD: 70 QT: 328 QTc: 465 [place]: P: 70 [place]: 138 QRS: 44 T: 82 INTERPRETIVE STATEMENTS: Sinus tachycardia ST & T wave abnormality, consider lateral ischemia Abnormal ECG Compared to ECG 10/20/2023 21:23:34 ST (T wave) deviation now present Possible ischemia now present Sinus rhythm no longer present Myocardial infarct finding no longer present Electronically Signed On 11-07-23 16:28:23 CDT by Anthony Ware
[2023-11-07] MEDS ORDERED: ONDANSETRON 4 MG/2 ML VIAL ONE (18:49)
[2023-11-07] MEDS ORDERED: PROMETHAZINE INJ 25 MG/ML AMP ONE (21:42)
[2023-11-08] MEDS ORDERED: TRAZODONE 50 MG TABLET ONE (01:36)
[2023-11-08] MEDS ORDERED: DIAZEPAM 5 MG TABLET ONE (07:19)
[2023-11-10 16:59] VITALS: BP 154/93; TEMP 98; O2SAT 99
== END 2023-11-08 11:10 ==
LOC: ER 22:38
DX: R45.851 Suicidal ideations (principal); F10.10 Alcohol abuse, uncomplicated; F43.10 Post-traumatic stress disorder, unspecified; F32.A Depression, unspecified; F41.9 Anxiety disorder, unspecified; Z88.0 Allergy status to penicillin
CPT/HCPCS: 36415; 80048; 80076; 80143; 80179; 81001; 82077; 85025; 85610; 85730; 93005; 96372; 99285; J2405; J7030

== ENCOUNTER 2023-11-15 20:56 | Emergency (ER) | payer SELFPAY ==
[2023-11-15 22:12] LABS: Absolute Basophils 0.1 K/uL (0-0.5); Absolute Eosinophils 0.1 K/uL (0-0.5); Absolute Monocytes 0.3 K/uL (0.1-1.3); Absolute Neutrophil 1.5 K/uL (1.8-8.0); Basophils % 1.8 % (0-1.3); Hematocrit 35.7 % (36.0-45.0); Hemoglobin 11.4 g/dL (12.0-15.0); Lymphocytes % 50.1 % (15.3-44.8); MCH 26.8 pg (27.0-35.0); MPV 7.9 fL (7.6-11.3); Monocytes % 8.8 % (3.3-12.3); Neutrophils % 37.3 % (41.7-73.7); Nucleated Red Blood Cells % 0.2 % (0-0); Platelets 221 thou/uL (152-406); RBC Red Blood Cell Count 4.24 M/uL (3.86-4.86); Red Cell Distribution Width 21.4 % (12.1-15.2)
[2023-11-15] MEDS ORDERED: NA CHLORIDE 0.9% 1,000 ML ONE ×2 (22:12→23:18)
[2023-11-15 22:23] LABS: Anion Gap 7.5 mEq/L (5.0-15.0); Potassium 4.5 mEq/L (3.5-5.1); Troponin High Sensitivity 8.8 pg/mL (<58.9)
[2023-11-15 22:28] LABS: Specific Gravity 1.011 (1.005-1.030); Sqamous Epithelial <5 /HPF (None Seen); Urine Bacteria <20 /HPF (<20); Urine Bilirubin NEGATIVE (Negative); Urine Blood Negative (Negative); Urine Clarity Turbid (Clear); Urine Color Light-Yellow (Yellow); Urine Crystals Unidentified Few /HPF (None Seen); Urine Culture Reflex Order NOT NEEDED; Urine Glucose NEGATIVE (Negative); Urine Ketones NEGATIVE (Negative); Urine Micro Reflex YN NO BILL MICROSCOPIC; Urine Mucus Slight /HPF (None Seen); Urine Nitrite NEGATIVE (Negative); Urine Protein NEGATIVE (Negative); Urine RBC <5 /HPF (None Seen); Urine Urobilinogen 1+ (Normal); Urine WBC <5 /HPF (<5); Urine pH 5.5 (5.0-7.0)
[2023-11-15] MEDS ORDERED: LORazepam 2 MG/ML VIAL ONE (23:17)
[2023-11-15 23:21] LABS: Anisocytosis 1+; Blood Morphology Comment NOTED (NOT SEEN); Hypochromasia 1+; Microcytosis 1+; Platelet Estimate ADEQ; White Blood Cell Scan OK (OK)
--- NOTE | 2023-11-16 01:55 | ER ---
Nurse's Notes [facility] Name: Katie Buenrostro Age: 42 yrs Sex: Female : 1980 Arrival Date: 11/15/2023 Time: 20:56 Bed 27 Private MD: Diagnosis: Tachycardia, unspecified Presentation: 11/14 21:15 Chief complaint: EMS states: toned out to group home for a vitals check. Patient was me1 tachycardic in the 130s and hyperglycemic BGL 300. Coronavirus screen: Vaccine status: Patient reports receiving the 2nd dose of the covid vaccine. Ebola Screen: No symptoms or risks identified at this time. Initial Sepsis Screen: Does the patient meet any 2 criteria? HR > 90 bpm. No. Patient's initial sepsis screen is negative. Does the patient have a suspected source of infection? No. Patient's initial sepsis screen is negative. Risk Assessment: Do you want to hurt yourself or someone else? Patient reports no desire to harm self or others. Onset of symptoms was November 15, 2023. Care prior to arrival: Glucose check: 300. 21:15 Method Of Arrival: EMS: [facility] il1 21:15 Acuity: JASON 3 me1 Triage Assessment: 21:15 General: Appears obese, unkempt, Behavior is cooperative, appropriate for age, me1 agitated, Reports fast heart rate, high blood sugar. Pain: Denies pain. EENT: No signs and/or symptoms were reported regarding the EENT system. Neuro: Level of Consciousness is awake, alert, obeys commands, Oriented to person, place, time, situation, Appropriate for age. Cardiovascular: Patient's skin is warm and dry. Cardiovascular: Reports palpitations. Respiratory: Airway is patent Trachea midline Respiratory effort is even, unlabored, Respiratory pattern is regular, symmetrical. GI: No signs and/or symptoms were reported involving the gastrointestinal system. : No signs and/or symptoms were reported regarding the genitourinary system. Derm: Skin is intact, is healthy with good turgor, Skin is pink, warm \T\ dry. Musculoskeletal: No signs and/or symptoms reported regarding the musculoskeletal system. 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 - Infectious Disease History:: Denies. - Social history:: Smoking status: Patient reports the use of cigarette tobacco products, smokes one-half pack cigarettes per day, Reported history of juuling and/or vaping. Screenin:15 [facility] ED Fall Risk Assessment (Adult) History of falling in the last 3 months, me1 including since admission No falls in past 3 months (0 pts) Confusion or Disorientation No (0 pts) Intoxicated or Sedated No (0 pts) Impaired Gait No (0 pts) Mobility Assist Device Used No (0 pt) Altered Elimination No (0 pt) Score/Fall Risk Level 0 - 2 = Low Risk Maintained a safe environment, Provided non-skid footwear, Hourly rounding (assess needs \T\ fall precautionary measures) done. Abuse screen: Denies threats or abuse. Nutritional screening: No deficits noted. Tuberculosis screening: No symptoms or risk factors identified. Assessment: 21:15 General: See triage assessment. . il1 11/15 01:00 Reassessment: Patient appears in no apparent distress at this time. Patient and/or jb4 family updated on plan of care and expected duration. Pain level reassessed. Patient is alert, oriented x 3, equal unlabored respirations, skin warm/dry/pink. 02:28 Reassessment: Pt reports taking her night time medications and is now lethargic and jb4 having a difficult time waking. Will continue to monitor pt. 05:00 Reassessment: Pt now awake and alert, ambulated with steady gait. Discharged to [place] [id number] to wait for ride home. Vital Signs: 11/14 21:15 BP 110 / 74; Pulse 118; Resp 16; Temp 97.7; Pulse Ox 94% on R/A; Weight 110.68 kg; il1 Height 5 ft. 6 in. ; Pain 0/10; 22:00 BP 128 / 66; Pulse 109; Resp 18; Pulse Ox 94% on R/A; me1 23:00 BP 96 / 60; Pulse 104; Resp 18; Pulse Ox 93% on R/A; me1 23:30 BP 106 / 57; Pulse 105; Resp 22; Pulse Ox 92% on R/A; me1 11/15 00:21 BP 123 / 69; ec2 00:21 Pulse 102; ec2 01:00 BP 119 / 72; Pulse 107; Resp 16; Pulse Ox 93% on R/A; jb4 01:55 BP 110 / 75; Pulse 101; ec2 02:00 Pulse 98; ec2 02:29 BP 108 / 73; Pulse 105; Resp 16; Pulse Ox 98% on R/A; jb4 11/14 21:15 Body Mass Index 39.38 (110.68 kg, 167.64 cm) me1 11/14 21:15 Pain Scale: Adult [facility] ED Course: 11/14 21:03 Patient arrived in ED. ec2 21:03 Avtar Arechiga MD is Attending Physician. ec2 21:15 No provider procedures requiring assistance completed. me1 21:15 Arm band placed on Patient placed in an exam room. me1 21:15 Patient has correct armband on for positive identification. Bed in low position. Call [facility] light in reach. Side rails up X2. Provided Education on: POC. Verbalized understanding. . Client placed on continuous cardiac and pulse oximetry monitoring. NIBP monitoring applied. ekg monitor on. Pulse ox on. NIBP on. Warm blanket given. 21:16 Monique Whitley, RN is Primary Nurse. il1 21:54 Basic Metabolic Panel Sent. me1 21:54 CBC with Diff Sent. me1 21:54 Troponin HS Sent. me1 21:55 Initial lab(s) drawn, by me, sent to lab. Inserted saline lock: 20 gauge in right [facility] antecubital area, using aseptic technique. 22:01 UAM Sent. il1 22:01 Urine collected: clean catch specimen, cloudy, eleuterio colored. me1 22:11 EKG done, by ED staff, reviewed by Avtar Arechiga MD. me1 22:23 Triage completed. il1 11/15 01:14 Repeat lab(s) drawn. by me, sent to lab. EKG done, by ED staff, reviewed by Avtar Arechiga MD. 05:00 Pt dc'ed own IV. jb4 Administered Medications: 11/14 22:15 Drug: NS 0.9% IV 1000 ml IV at 1 bolus Per protocol; 1000 mL bolus Route: IV; Rate: 1 me1 bolus; Site: right antecubital; 23:21 Follow up: Response: No adverse reaction; IV Status: Completed infusion; IV Intake: me1 1000ml 23:20 Drug: Ativan IVP 1 mg IVP once Route: IVP; Site: right antecubital; me1 23:22 Follow up: Response: No adverse reaction; Anxiety decreased il1 23:21 Drug: NS 0.9% IV 1000 ml IV at 1 bolus Per protocol; 1000 mL bolus Route: IV; Rate: 1 me1 bolus; Site: right antecubital; Medication: 21:15 VIS not applicable for this client. me1 Intake: 23:21 IV: 1000ml; Total: 1000ml. [facility] Outcome: 11/15 01:54 Discharge ordered by MD. ec2 05:00 Discharged to home ambulatory, jb4 05:00 Condition: stable 05:00 Discharge instructions given to patient, Instructed on discharge instructions, follow up and referral plans. Demonstrated understanding of instructions, follow-up care, 05:02 Patient left the ED. 4 Signatures: Jasiel Jiménez RN RN jb4 Monique Whitley RN RN il1 Avtar Arechiga MD MD ec2 Renard Callahan RN RN bm8 Corrections: (The following items were deleted from the chart) 11/14 22:28 20:25 Chief complaint: EMS states: toned out to group home for a vitals check. Patient was me1 tachycardic in the 130s and hyperglycemic BGL 300. [facility] 22:28 20:25 Coronavirus screen: Vaccine status: Patient reports receiving the 2nd dose of the il1 covid vaccine. [facility] : 20:25 Ebola Screen: No symptoms or risks identified at this time. [place] [id number] 22:28 20:25 Initial Sepsis Screen: Does the patient meet any 2 criteria? HR > 90 bpm. No. me1 Patient's initial sepsis screen is negative. Does the patient have a suspected source of infection? No. Patient's initial sepsis screen is negative. [facility] 22:28 20:25 Risk Assessment: Do you want to hurt yourself or someone else? Patient reports no il1 desire to harm self or others. [facility] 22:28 20:25 Onset of symptoms was November 15, 2023 [place] [address] :28 20:25 Care prior to arrival: Glucose check: 300 [place] [address] 20:25 Method Of Arrival: EMS: [facility] [place] [address] 20:25 BP 110 / 74; Pulse 118bpm; Resp 16bpm; Pulse Ox 94% RA; Temp 97.7F; 110.68 kg; me1 Height 5 ft. 6 in.; BMI: 39.3; Pain 0/10, Adult; [facility] 20:25 Acuity: JASON 3 [email or web address] 22:23 Immunization history: Adult Immunizations unknown, [facility] 22:23 Infectious Disease History: Denies. [place] [address] 22:23 Social history: Smoking status: Patient reports the use of cigarette tobacco [facility] products, smokes one-half pack cigarettes per day, Reported history of juuling and/or vaping. [facility] 22:23 General: Appears obese, unkempt, Behavior is cooperative, appropriate for age, me1 agitated, Reports fast heart rate, high blood sugar [facility] 22:23 Pain: Denies pain. [facility] 22:23 EENT: No signs and/or symptoms were reported regarding the EENT system. [place] [address] 22:23 Neuro: Level of Consciousness is awake, alert, obeys commands, Oriented to il1 person, place, time, situation, Appropriate for age [facility] 22:23 Cardiovascular: Patient's skin is warm and dry. [facility] 22:23 Respiratory: Airway is patent Trachea midline Respiratory effort is even, me1 unlabored, Respiratory pattern is regular, symmetrical, il1 22:23 GI: No signs and/or symptoms were reported involving the gastrointestinal system. [facility] 22:23 : No signs and/or symptoms were reported regarding the genitourinary system. [facility] 22:23 Cardiovascular: Reports palpitations, [place] [address] 22:23 Derm: Skin is intact, is healthy with good turgor, Skin is pink, warm \T\ dry. [facility] 30 22:23 Musculoskeletal: No signs and/or symptoms reported regarding the musculoskeletal [facility] system. me
--- NOTE | 2023-11-16 01:55 | EDPHYS ---
Physician Documentation [facility] Name: Katie Buenrostro Age: 42 yrs Sex: Female : 1980 Arrival Date: 11/15/2023 Time: 20:56 Bed 27 Private MD: ED Physician Avtar Arechiga HPI: 11/14 21:04 This 42 yrs old Female presents to ER via Unassigned with complaints of ec2 hyperglycemia. 21:07 Patient arrives today for evaluation of hyperglycemia. Patient in long term and intoxicated ec2 and placed wanted EMS to evaluate her, they noted that she was tachycardic to the 110s, had an elevated blood sugar and brought her in. Patient reports no chest pain, no difficulty breathing, nausea or vomiting. States that she did take multiple alcoholic beverages tonight.. 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 - Infectious Disease History:: Denies. - Social history:: Smoking status: Patient reports the use of cigarette tobacco products, smokes one-half pack cigarettes per day, Reported history of juuling and/or vaping. ROS: 21:07 Constitutional: as per hpi ec2 Exam: 21:07 Constitutional: GEN: NAD Head: atraumatic Eyes: EOMI Ears: External ears are ec2 normal. CV: Tachycardia LUNGS: no respiratory distress ABD: non-distended, soft, nontender, guarding, not rigid. SKIN: no evidence of rashes MSK: no evidence of trauma NEURO: moves all extremities equally Vital Signs: 21:15 BP 110 / 74; Pulse 118; Resp 16; Temp 97.7; Pulse Ox 94% on R/A; Weight 110.68 kg; me1 Height 5 ft. 6 in. ; Pain 0/10; 22:00 BP 128 / 66; Pulse 109; Resp 18; Pulse Ox 94% on R/A; me1 23:00 BP 96 / 60; Pulse 104; Resp 18; Pulse Ox 93% on R/A; me1 23:30 BP 106 / 57; Pulse 105; Resp 22; Pulse Ox 92% on R/A; me1 11/15 00:21 BP 123 / 69; ec2 00:21 Pulse 102; ec2 01:00 BP 119 / 72; Pulse 107; Resp 16; Pulse Ox 93% on R/A; jb4 01:55 BP 110 / 75; Pulse 101; ec2 02:00 Pulse 98; ec2 02:29 BP 108 / 73; Pulse 105; Resp 16; Pulse Ox 98% on R/A; jb4 11/14 21:15 Body Mass Index 39.38 (110.68 kg, 167.64 cm) me1 11/14 21:15 Pain Scale: Adult [facility] MDM: 11/14 21:03 Patient medically screened. ec2 21:07 Data reviewed: vital signs. ED course: Patient arrives today for evaluation of ec2 hypoglycemia and tachycardia. Examination remarkable for well-appearing nontoxic individual is otherwise in no acute distress with slight tachycardia noted. Will obtain lab work, EKG, urine studies. Will give the patient crystalloid as well. Evaluate for proximal such as arrhythmia, electrolyte disturbances, anemia, hyperglycemia.. 22:13 ED course: Independently reviewed and interpreted by me, shows sinus tachycardia, rate ec2 106, no acute ST segment elevations, intervals are nonconcerning.. 22:33 ED course: Metabolic profile is reassuring, CBC is reassuring, urine is noninfectious, ec2 troponin is within normal ranges. . 11/15 01:12 ED course: Repeat EKG independently reviewed and interpreted by me, shows sinus ec2 tachycardia, rate 104, no acute ST segment elevations, intervals nonconcerning, compared to initial EKG, appears grossly unchanged. 01:54 ED course: Repeat troponin without significant change. On reassessment patient is ec2 well-appearing in no acute distress.. ED course: I considered other process such as PE, dissection, patient any chest pain or difficulty breathing, patient any abdominal pain. Will have her follow-up with cardiology for tachycardia. Additionally possible anxiety, possible substance use.. 11/14 21:03 Order name: Basic Metabolic Panel; Complete Time: 22:32 ec2 11/14 21:03 Order name: CBC with Diff; Complete Time: 00:50 ec2 11/14 21:03 Order name: Troponin HS; Complete Time: 22:32 ec2 11/14 21:03 Order name: UAM; Complete Time: 22:32 ec2 11/14 22:49 Order name: Troponin High Sensitivity; Complete Time: 01:53 ec2 11/14 22:52 Order name: CBC Smear Scan; Complete Time: 00:50 EDMS 11/14 21:03 Order name: Cardiac monitoring; Complete Time: 22:11 ec2 11/14 21:03 Order name: EKG - Nurse/Tech; Complete Time: 22:11 ec2 11/14 21:03 Order name: IV Saline Lock; Complete Time: 21:54 ec2 11/14 21:03 Order name: Labs collected and sent; Complete Time: 21:54 ec2 11/14 21:03 Order name: O2 Per Protocol; Complete Time: 21:54 ec2 11/14 21:03 Order name: O2 Sat Monitoring; Complete Time: 21:54 ec2 11/14 22:49 Order name: EKG - Nurse/Tech; Complete Time: 22:57 ec2 Administered Medications: 11/14 22:15 Drug: NS 0.9% IV 1000 ml IV at 1 bolus Per protocol; 1000 mL bolus Route: IV; Rate: 1 me1 bolus; Site: right antecubital; 23:21 Follow up: Response: No adverse reaction; IV Status: Completed infusion; IV Intake: me1 1000ml 23:20 Drug: Ativan IVP 1 mg IVP once Route: IVP; Site: right antecubital; me1 23:22 Follow up: Response: No adverse reaction; Anxiety decreased me1 23:21 Drug: NS 0.9% IV 1000 ml IV at 1 bolus Per protocol; 1000 mL bolus Route: IV; Rate: 1 me1 bolus; Site: right antecubital; Disposition Summary: 11/16/23 01:54 Discharge Ordered Notes: Location: Home ec2 Condition: Stable ec2 Diagnosis - Tachycardia, unspecified ec2 Followup: ec2 - With: Private Physician - When: - Reason: Re-evaluation by your physician Discharge Instructions: - Discharge Summary Sheet ec2 - Sinus Tachycardia ec2 Forms: - Medication Reconciliation Form ec2 - Antibiotic Education ec2 - Prescription Opioid Use ec2 - Patient Portal Instructions ec2 - Leadership Thank You Letter ec2 Signatures: Dispatcher [employer] Monique Anne RN RN me1 Avtar Arechiga MD MD ec2 Corrections: (The following items were deleted from the chart) : Immunization history: Adult Immunizations unknown, [place] [id number] 22: Infectious Disease History: Denies. [place] [id number] 22:23 Social history: Smoking status: Patient reports the use of cigarette tobacco wi1 products, smokes one-half pack cigarettes per day, Reported history of juuling and/or vaping. [facility] 22:50 Troponin High Sensitivity+[id number].LAB.BRZ ordered. EDMS EDMS
--- NOTE | 2023-11-16 11:41 | EKG ---
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
--- NOTE | 2023-11-16 11:42 | EKG ---
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
[2023-11-16 12:45] VITALS: TEMP 97.7
[2023-11-16 13:06] VITALS: BP 108/73; O2SAT 98
== END 2023-11-16 05:02 | disposition home or self-care (01) ==
LOC: ER 20:56
DX: R00.0 Tachycardia, unspecified (principal)
CPT/HCPCS: 36415; 80048; 81001; 84484; 85025; 93005; 96361; 96374; 99285; J7030